=== PATIENT | male | born 1935 | race Caucasian/White ===

== ENCOUNTER 2018-08-20 15:43 | Emergency (ER) | payer MEDICARE ==
[~2018-08-20] VITALS: Ht 162.6 cm; Wt 68.0 kg
--- NOTE | 2018-08-20 15:57 | ED Head Injury ---
General Chief Complaint: Laceration Stated Complaint: FALL,HEAD LAC Source: patient Exam Limitations: no limitations History of Present Illness Date Seen by Provider: Aug 20, 2018 Time Seen by Provider: 15:54 Initial Comments To ER with reports of a fall and head injury. He fell at home in the driveway striking his head. He also has an abrasion to the right arm. He has a laceration to the head. Did not lose consciousness. No headache nausea or vomiting. Denies any use of anticoagulant or blood thinner medications Occurred: just prior to arrival Severity: mild Location: parietal Method of Injury: fell Loss of Consciousness: no loss of consciousness Allergies and Home Medications Allergies Coded Allergies: No Known Drug Allergies (Unverified , 08/20/18) Patient Home Medication List Home Medication List Reviewed: Yes Review of Systems Review of Systems Constitutional: see HPI Eyes: No Symptoms Reported Ears, Nose, Mouth, Throat: no symptoms reported Respiratory: no symptoms reported Cardiovascular: no symptoms reported Genitourinary: no symptoms reported Musculoskeletal: no symptoms reported Skin: see HPI Psychiatric/Neurological: No Symptoms Reported Endocrine: No Symptoms Reported Past [id number] Hx Patient Social History Recent Foreign Travel: No Contact w/Someone Who Travel: No Physical Exam Vital Signs Vital Signs - First Documented 08/20/18 08/20/18 15:52 16:39 Temp 98.3 Pulse 85 Resp 18 B/P (MAP) 136/87 (103) Pulse Ox 90 Capillary Refill : Height, Weight, BMI Height: '" Weight: lbs. oz. kg; BMI Method: General Appearance: WD/WN, no apparent distress HEENT: PERRL/EOMI, normal ENT inspection, TMs normal, other (no Francois sign hemotympanum or raccoon eyes. There is a 4 cm laceration to the midline posterior parietal scalp and a more superficial abrasion to the lateral left posterior parietal scalp.) Neck: non-tender, full range of motion Respiratory: no respiratory distress, no accessory muscle use Extremities: normal range of motion, non-tender, other (abrasion/hematoma to the dorsal aspect of the midright forearm without any other pain in the right forearm elbow or wrist.) Psychiatric: alert, oriented x 3 Crainal Nerves: normal hearing, normal speech, PERRL Skin: normal color, warm/dry Edna Coma Score Best Eye Response: (4) Open Spontaneously Best Verbal Response: (5) Oriented Best Motor Response: (6) Obeys Commands Procedures/Interventions Wound Location: Scalp Wound Length (cm): 4 Wound's Depth, Shape: linear Wound Explored: clean Irrigated w/ Saline (ccs): 30 Anesthesia: 1% Lidocaine Volume Anesthetic (ccs): 3 Suture: Prolene Suture Size: 5-0 Number of Sutures: 1 Layer Closure?: 1 Number Deep Layer Sutures: 0 Progress Anesthetized with 3 L a 1% lidocaine without epinephrine. Wound then scrubbed with chlorhexidine/saline solution then irrigated with the same Wound then closed with 1 continuous suture throughout the length of the wound. Progress/Results/Core Measures Results/Orders My Orders Orders - CHIRAG NATARAJAN APRN Ct Head/Cervical Spine Wo (08/20/18 15:53) Lidocaine 1% Inj 20 Ml (Xylocaine 1% Inj (08/20/18 16:00) Medications Given in ED Vital Signs/I&O Departure Impression Primary Impression: Scalp laceration Qualified Codes: S01.01XA - Laceration without foreign body of scalp, initial encounter Disposition: HOME, SELF-CARE Condition: Stable Departure-Patient Inst. Decision time for Depature: 15:57 Referrals: NO,LOCAL PHYSICIAN (PCP/Family) Primary Care Physician Patient Instructions: Laceration Repair With Stitches (DC) Add. Discharge Instructions: 1. Return to the emergency room to have the stitches removed in about 7 days. You may shower allowing water run over them starting tonight. Return to ER before then for any sign of infection such as redness or swelling. All discharge instructions reviewed with patient and/or family. Voiced understanding. CHIRAG NATARAJAN APRN Aug 20, 2018 15:57
[2018-08-20] MEDS ORDERED: LIDOCAINE 1% INJ 20 ML 20 ML VIAL INJ ONE (16:00)
--- NOTE | 2018-08-20 16:32 | Diagnostic Imaging Report ---
PROCEDURE: CT head and CT cervical spine without contrast. TECHNIQUE: Multiple contiguous axial images were obtained through the brain and cervical spine without the use of intravenous contrast. Sagittal and coronal reformations through the cervical spine were then performed. INDICATION: Fall. Head injury. COMPARISON: None. FINDINGS: CT HEAD: No intracranial hemorrhage, mass effect, hydrocephalus or extra-axial fluid collections. No CT evidence for territorial infarction. Moderate generalized cerebral and cerebellar parenchymal volume loss. 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 Complete opacification of the right sphenoid air cell. Moderate mucosal thickening in the left maxillary sinus. Osseous structures are intact. CT CERVICAL SPINE: Normal alignment. Vertebral body heights are preserved. Moderate to advanced degenerative endplate changes are greatest at C5-C7. No high-grade spinal canal narrowing is evident on this non-contrast exam. The visualized paravertebral soft tissues are unremarkable. IMPRESSION: 1. No acute intracranial or cervical spine CT findings. 2. 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 Dictated by: Dictated on workstation # [id number]
[2018-08-20 16:39] VITALS: BP 136/87
== END 2018-08-20 16:39 | disposition home or self-care (01) ==
LOC: ER 15:46
DX: S01.01XA Laceration without foreign body of scalp, initial encounter (principal); R40.2142 Coma scale, eyes open, spontaneous, at arrival to emergency department; R40.2252 Coma scale, best verbal response, oriented, at arrival to emergency department; R40.2362 Coma scale, best motor response, obeys commands, at arrival to emergency department; W19.XXXA Unspecified fall, initial encounter; W22.09XA Striking against other stationary object, initial encounter; Y92.009 Unspecified place in unspecified non-institutional (private) residence as the place of occurrence of the external cause
CPT/HCPCS: 70450; 72125